=== PATIENT | female | born 1985 ===

== ENCOUNTER 2020-10-09 09:36 | Emergency (ER) | payer OTHER, MEDICAID, SELFPAY ==
[2020-10-09 10:04] VITALS: PULSE 79; O2SAT 100
[2020-10-09 10:10] VITALS: BP 103/64; PULSE 106; RESP 16; TEMP 35.8; O2SAT 100; BMI 26.5
--- NOTE | 2020-10-09 10:25 | ED.EXTPRO ---
HPI - Extremity Problem General Chief complaint: Extremity Problem,Nontraumatic Stated complaint: Concerned with blood clots Time Seen by Provider: 10/09/20 09:40 Source: patient Mode of arrival: Family Vehicle Limitations: no limitations History of Present Illness HPI Narrative: Patient is a 35-year-old female who was sent to the emergency department for evaluation of potential DVT in her left lower extremity. She had a left total hip replacement done within the past month secondary to medical issues when she was a baby. She was seeing physical therapy in the patient was complaining of left calf pain and also swelling in her left leg. States that the swelling does go on is not necessarily new for her which she does think that it is swollen today. She is also having pain along the left calf muscle. Denies any chest pain or shortness of breath. She is on aspirin but no other anticoagulation. Related Data Allergies Allergy/AdvReac Type Severity Reaction Status Date / Time No Known Drug Allergies Allergy Verified 10/09/20 10:16 Review of Systems Constitutional Constitutional: Denies fever(s) and Denies headache(s) ENT Ears, Nose, Mouth, and Throat: Denies headache(s) Cardiovascular Cardiovascular: Denies chest pain and Denies dyspnea Respiratory Respiratory: Denies dyspnea Gastrointestinal Gastrointestinal: Denies abdominal pain Musculoskeletal Musculoskeletal: Denies tingling Comments: Left calf pain and swelling of left like Integumentary/Breasts Skin/Breast: Denies lesions and Denies rash Neurologic Neurologic: Denies behavioral changes, Denies headache(s) and Denies tingling Psychiatric Psychiatric: Denies behavioral changes Hematologic/Lymphatic Hematologic/Lymphatic: Denies easy bleeding and Denies easy bruising Allergic/Immunologic Allergic/Immunologic: Denies urticaria Patient History Surgical History History of total left hip arthroplasty Social History Smoking Status: Former smoker Smoking Status: Former smoker alcohol intake frequency: 0-2 drinks per day Substance Use Type: marijuana Exam Initial Vital Signs Initial Vital Signs: Vital Signs Pulse Rate 79 10/09/20 10:04 Pulse Oximetry 100 10/09/20 10:04 Const General: cooperative and comfortable Limitations: mental status not altered HENMT Head: normal to inspection and normocephalic Resp Effort & Inspection: normal respiratory effort Cardio Rate: regular rate Skin Lesions: no lesions Rashes: no rashes Neuro General: patient alert and patient awake Motor: muscle tone normal throughout Sensory Exam: no sensory deficits noted Extrem General: capillary refill normal and edema Other: Patient does have tenderness along the left gastrocnemius. Also has slight swelling to the left lower extremity compared to the right. This is nonpitting edema. Psych Appearance: grossly normal and well kempt Course Orders Ordered: ED Orders 10/09/20 10:24 US perip venous low extrem lt Stat Vital Signs Vital signs: Vital Signs - 8 hr 10/09/20 10:04 10/09/20 10:10 10/09/20 10:30 Temperature 96.5 F L Pulse Rate 79 106 H 72 Respiratory Rate 16 17 Blood Pressure 103/64 Pulse Oximetry 100 100 100 10/09/20 11:00 10/09/20 11:47 Temperature Pulse Rate 74 72 Respiratory Rate 19 16 Blood Pressure 107/57 L Pulse Oximetry 100 100 MDM - Extremity (Nontraumatic) Imaging Data US - DVT: Radiologist's Impression: [address] [id number] ReportSigned Patient: Candi Castaneda MMR#: [id number]: [id number]:[id number]/Sex: 35 / FDate of Service: 10/09/20Loc: EDAccession Number: [id number] Procedure: [facility] venous low extrem lt Ordering Provider: Dakota Figueroa D.O. PROCEDURE: [facility] VENOUS LOW EXTREM LT INDICATIONS: Lower extremity edema, status post hip replacement 1 month ago. eval for LLE DVT TECHNIQUE: Real-time imaging, as well as color and pulse Doppler interrogation, were performed of the lower extremity deep veins from the inguinal ligament to the popliteal fossa. COMPARISON: None. FINDINGS: The common femoral, femoral and popliteal veins are normally compressible, and free of intraluminal thrombus. Color and pulse Doppler demonstrate normal phasic intraluminal flow. There is normal augmentation response to distal compression maneuver. IMPRESSION: Negative for deep venous thrombosis. Dictated by: Kailash Hodges M.D. on 10/09/2020 at 10:23 Approved by: Kailash Hodges M.D. on 10/09/2020 at 10:24 MDM Narrative Medical decision making narrative: Ultrasound negative for DVT. There is no signs of an infection. Will have patient continue all of her postoperative instructions given by the operative surgeon and also the physical therapist. She was given return precautions. She expressed understanding and agreement plan. Discharge Plan Departure Patient Disposition: Home Clinical Impression: Lower extremity edema Instructions: DI for Peripheral Edema-Unilateral Activity Restrictions/Additional Instructions: Follow all of your postoperative instructions given to you by the orthopedic surgeon and also your physical therapist. Contact your primary provider for follow-up. Return to the emergency department for new or worsening symptoms
[2020-10-09 10:30] VITALS: PULSE 72; RESP 17; O2SAT 100
[2020-10-09 11:00] VITALS: PULSE 74; RESP 19; O2SAT 100
[2020-10-09 11:47] VITALS: BP 107/57; PULSE 72; RESP 16; O2SAT 100
== END 2020-10-09 11:49 | disposition home or self-care (01) ==
PROVIDERS: Emergency Provider Emergency Medicine; Family Provider Nurse Practitioner
DX: R60.0 Localized edema (principal); M79.605 Pain in left leg; Z96.642 Presence of left artificial hip joint
CPT/HCPCS: 93971; 99283

== ENCOUNTER → 2024-08-20 15:57 | Outpatient (CLI) | payer OTHER, MEDICAID, SELFPAY ==
--- NOTE | 2024-08-20 16:00 | DI.US.S_ITS ---
PROCEDURE: US PELVIC COMPLETE INDICATIONS: LEFT PELVIC CRAMPING/PRESSURE. EARLY MENOPAUSAL STATE. TECHNIQUE: Real-time scanning was performed of the pelvic organs, with image documentation. Additional endovaginal scanning was necessary due to incomplete visualization of the adnexal and endometrial structures by transabdominal scanning. COMPARISON: None. FINDINGS: Uterus: Uterus is anteverted and normal in size at 6.3 x 4.3 x 2.7 cm. The myometrium is homogeneous. The endometrium measures 1 mm combined thickness. Dilated arcuate vasculature. Ovaries: Ovaries not visualized due to overlying bowel gas. Dilated bilateral pelvic vasculature. Other: No pathologic free abdominal or pelvic fluid. IMPRESSION: Dilated arcuate air pelvic vasculature, which can be seen in the clinical setting of pelvic congestion syndrome. We strive to produce accurate, complete, and clear reports of imaging services. To assist us in improving patient care, this report was composed using standard report templates and voice recognition software. Therefore, it may contain abnormal punctuation, insertions and/or omissions. Occasional wrong-word or sound-alike substitutions may occur. Though we review the report and make efforts to correct it, we do recommend that the report be read carefully in proper context to recognize any text inaccuracies. Dictated by: Ortiz Camp M.D. on 08/20/2024 at 17:37 Approved by: Ortiz Camp M.D. on 08/20/2024 at 17:38
== END ==
LOC: US 16:00
PROVIDERS: Family Provider Nurse Practitioner; PCP Physician Assistant; Referring Provider Physician Assistant; Visit Provider Physician Assistant
DX: E28.310 Symptomatic premature menopause (principal)
CPT/HCPCS: 76830; 76856